=== PATIENT | female | born 1980 | race Caucasian/White ===

== ENCOUNTER 2018-01-25 14:00 | Outpatient (RCR) | payer OTHER | END 2018-01-29 | LOC: OT 14:00 | PROVIDERS: ATTEND Plastic Surgery | DX: M13.842 Other specified arthritis, left hand (principal); M25.542 Pain in joints of left hand; M25.642 Stiffness of left hand, not elsewhere classified | CPT/HCPCS: 97022 ×6; 97035 ×2; 97110 ×6; 97140; 97165; G8987 ×2; G8988 ×2 ==

== ENCOUNTER → 2018-03-01 | Outpatient (RCR) | payer OTHER | LOC: OT 02-01 07:50 | PROVIDERS: ATTEND Plastic Surgery | DX: M00.9 Pyogenic arthritis, unspecified (principal) | CPT/HCPCS: 97022 ×8; 97035 ×3; 97110 ×8; G8987; G8988 ×2; G8989 ==